=== PATIENT | male | born 1995 | race Hispanic/Latino ===

== ENCOUNTER 2018-07-04 08:32 | Emergency (ER) | payer SELFPAY ==
[2018-07-04 08:51] VITALS: O2SAT 99
[2018-07-04 10:27] VITALS: BP 127/72; PULSE 90; RESP 16; TEMP 97.8
--- NOTE | 2018-07-04 11:22 | C.PDOC ---
History Of Present Illness 22 year old male who recently traveled from [place] presents to the ED for evaluation of an insect bite on the right medial ankle a few days ago. Patient reports symptoms started before his flight, redness, swelling and itchiness began 1 day after the insect bite. Also notes he took over the counter medication with improvement but still feels itchiness to the area. Denies injury, fever, nausea, vomiting, and any other associated symptoms. Time Seen by Provider: 07/04/18 09:05 Chief Complaint (Nursing): Abnormal Skin Integrity History Per: Patient History/Exam Limitations: no limitations Onset/Duration Of Symptoms: Days Current Symptoms Are (Timing): Still Present Recent travel outside of the [place]: Yes ([place]) Past Medical History Reviewed: Historical Data, Nursing Documentation, Vital Signs Vital Signs: Last Vital Signs Temp 97.8 F 07/04/18 10:25 Pulse 90 07/04/18 10:25 Resp 16 07/04/18 10:25 BP 127/72 07/04/18 10:25 Pulse Ox 99 07/04/18 10:25 Family History: States: Unknown Family Hx - Social History Hx Alcohol Use: Yes Hx Substance Use: No - Immunization History Hx Tetanus Toxoid Vaccination: No Hx Influenza Vaccination: No Hx Pneumococcal Vaccination: No Review Of Systems Constitutional: Negative for: Fever, Chills Gastrointestinal: Negative for: Nausea, Vomiting Skin: Positive for: Other (+ itchiness to the right ankle) Physical Exam - Physical Exam Appears: Well, Non-toxic Skin: Warm, Dry Head: Atraumatic, Normacephalic Eye(s): bilateral: PERRL Oral Mucosa: Moist Neck: Normal ROM, Supple Chest: Symmetrical, No Deformity Cardiovascular: Rhythm Regular, No Murmur Respiratory: Other (no acute respiratory distress.) Gastrointestinal/Abdominal: Normal Exam, Soft Extremity: Normal ROM (x4), No Tenderness, Capillary Refill (less than 2 seconds.), Swelling, Other (right medial ankel: insect bite is from the right heal to 5 cm above the medial malleolus, (+) erythema (-) fluctuence (-) discharge. ) Pulses: Left Femoral: Normal, Right Femoral: Normal Neurological/Psych: Oriented x3, Normal Speech, Normal Motor, Normal Sensation, Normal Reflexes Gait: Steady ED Course And Treatment O2 Sat by Pulse Oximetry: 99 (RA) Pulse Ox Interpretation: Normal Medical Decision Making Medical Decision Making: Progress/Update: Patient stable for discharge home. Prescribed Keflex and advised to follow up as needed. Disposition - Disposition Disposition: HOME/ ROUTINE Disposition Time: 10:04 Condition: GOOD Additional Instructions: SIDNEY HERNANDEZ, thank you for letting us take care of you today. Your provider was Cora Beckett MD and you were treated for RASH LOWER RT LEG. The emergency medical care you received today was directed at your acute symptoms. If you were prescribed any medication, please fill it and take as directed. It may take several days for your symptoms to resolve. Return to the Emergency Department if your symptoms worsen, do not improve, or if you have any other problems. Please contact your doctor or call one of the physicians/clinics you have been referred to that are listed on the Patient Visit Information form that is included in your discharge packet. Bring any paperwork you were given at discharge with you along with any medications you are taking to your follow up visit. Our treatment cannot replace ongoing medical care by a primary care provider outside of the emergency department. Thank you for allowing the [email or web address] team to be part of your care today. If you had an X-Ray or CT scan: A Radiologist will review the ED reading if any change in treatment is needed we will contact you. If you had a blood, urine, or wound culture: It will take several days for the results, if any change in treatment is needed we will contact you. If you had an STI test: It will take 48 hours for the results. Please call after 1 week if you have not heard back. Prescriptions: Cephalexin [Keflex] 500 mg PO Q6H #28 capsule Instructions: Insect Bites and Stings (DC) Forms: [employer] ([employer]) - Clinical Impression Clinical Impression: Insect bite, Cellulitis - Scribe Statement The provider has reviewed the documentation as recorded by the Scribe (Ilda Angulo) Provider Attestation: All medical record entries made by the Scribe were at my direction and personally dictated by me. I have reviewed the chart and agree that the record accurately reflects my personal performance of the history, physical exam, medical decision making, and the department course for this patient. I have also personally directed, reviewed, and agree with the discharge instructions and disposition.
== END 2018-07-04 10:25 | disposition home or self-care (01) ==
LOC: C.ER 08:32
DX: S90.561A Insect bite (nonvenomous), right ankle, initial encounter (principal); L03.115 Cellulitis of right lower limb; W57.XXXA Bitten or stung by nonvenomous insect and other nonvenomous arthropods, initial encounter